=== PATIENT | female | born 1955 | race Caucasian/White ===

== ENCOUNTER 2019-10-04 10:00 | Outpatient (CLI) | payer OTHER, SELFPAY ==
--- NOTE | 2019-10-04 10:06 | MM_ITS ---
WS: [id number] SCREENING DIGITAL MAMMOGRAM WITH CAD HISTORY: SCREENING COMPARISON: 09/12/2018 and 08/04/2017 Bilateral CC and MLO views submitted. Computer aided detection analyzed. Breast composition: There are scattered areas of fibroglandular density. No suspicious masses, microc alcifications or architectural distortion. MM/[id number] IMPRESSION: BI-RADS: 1-Negative FOLLOW UP: 1 Year Follow-up
== END 2019-10-04 10:01 | disposition home or self-care (01) ==
PROVIDERS: PCP Family Medicine; Visit Provider Family Medicine
DX: Z12.31 Encounter for screening mammogram for malignant neoplasm of breast (principal)
CPT/HCPCS: 77067

== ENCOUNTER 2019-10-10 14:55 | Outpatient (CLI) | payer OTHER, SELFPAY ==
--- NOTE | 2019-10-10 15:01 | XR_ITS ---
WS: [id number] SCREENING DEXA SCAN [employer] CLINICAL INFORMATION: ASYMPTOMATIC MENOPAUSAL STATE COMPARISON: None. FINDINGS: The L1-L4 bone mineral density measures 1.483 g/cm2. This corresponds to a T score score of 2.5 and Z score of 4.0. Left femoral neck bone mineral density measures 1.143 g/cm2. This corresponds to a T score of 1.1 and Z score of 2.3. Right femoral neck bone mineral density measures 1.113 g/cm2. This corresponds to a T score 0.8of and Z score of 2.0. Mean femoral neck bone mineral density measures 1.128 g/cm2. This corresponds to a T score of 1.0 and Z score of 2.1. XR/XR DEXA axial skeleton* [id number] IMPRESSION: Normal bone mineralization. Patient's FRAX calculated 10 year probability for major osteoporotic fracture i s 7.4 % and osteoporotic hip fracture is 0.4%.
== END 2019-10-10 14:56 | disposition home or self-care (01) ==
LOC: RADWPI 15:00
PROVIDERS: PCP Family Medicine; Visit Provider Family Medicine
DX: Z78.0 Asymptomatic menopausal state (principal)
CPT/HCPCS: 77080

== ENCOUNTER → 2020-03-14 11:05 | Outpatient (BNVA) | payer MEDICARE, SELFPAY | PROVIDERS: PCP Family Medicine; Visit Provider Obstetrics & Gynecology | DX: R33.9 Retention of urine, unspecified (principal); N99.3 Prolapse of vaginal vault after hysterectomy | CPT/HCPCS: 87086 ==

== ENCOUNTER → 2020-03-27 17:26 | Outpatient (BNVA) | payer MEDICARE, SELFPAY | PROVIDERS: PCP Family Medicine; Visit Provider Obstetrics & Gynecology | DX: Z01.812 Encounter for preprocedural laboratory examination (principal); N81.11 Cystocele, midline; N99.3 Prolapse of vaginal vault after hysterectomy; R33.9 Retention of urine, unspecified | CPT/HCPCS: 87635 ==

== ENCOUNTER 2020-04-02 08:17 | Day surgery (SDC) | payer MEDICARE, SELFPAY ==
[2020-03-29 10:31] VITALS: BMI 27.9
--- NOTE | 2020-03-29 11:04 | P.ANESASSM_ITS ---
Pre-Anesthetic Assessment Pre-Anesthetic Assessment: Height/Weight: Height 1.55 m Weight 67.132 kg Preop Diagnosis: Vaginal vault prolapse, Cystocele, Urinary retention Proposed Procedure: Operation Date: 04/02/20 10:55 Proposed Procedures p Laparoscopic Uterosacral Ligament Suspense 93797 [id number] 26250 57091 N99.3 N81.11 R33.9(Not Applicable) - MD john Carty Anterior Repair Anterior Colporrhaphy(Not Applicable) - MD john Carty Suprapubic Catheter Placement(Not Applicable) - MD john Carty Cystoscopy(Not Applicable) - Jim Lechuga MD Familial anesthetic complications: None Social: Social History: No alcohol and No tobacco Exam: Pre-Anes Outpt Exam: alert, oriented x 3, clear to auscultation bilaterally and regular rate & rhythm Airway: MP: 1 Dentition: Full GI: GI: GERD Musc/skel: Musc/skel: Lower Back Pain Anesthetic Plan: ASA status: 1 Anesthesia: General Risk of > 500 ml blood loss (7ml/kg in children): No PFSH Anesthesia PFSH: Medical History (Updated 03/18/20 @ 17:26 by Jim Lechuga MD) GERD (gastroesophageal reflux disease) Osteoarthritis Postmenopausal Surgical History (Updated 03/18/20 @ 17:22 by Jim Lechuga MD) S/P colonoscopy (09/16/17) S/P laparoscopic assisted vaginal hysterectomy (LAVH) (~2006) LAVH BSO with bladder tuck. Performed by Dr. De La Garza at [facility] in [place], [place]. Family History (Updated 03/14/20 @ 15:12 by Nguyễn Lechuga) Father Diabetes Grandfather Diabetes Paternal Stroke Maternal Mother Hypertension Social History (Updated 03/14/20 @ 15:12 by Nguyễn Lechuga) Smoking and tobacco status: never smoked Alcohol intake: never Data Anesthesia Cardiac Studies: No Data to Display
[2020-03-29 11:21] LABS: Basophils % 0.2 %; Eosinophils # 0.1 10^3/uL (0.0-0.8); Eosinophils % 1.8 %; Hematocrit 46.8 % (37.0-47.0); Hemoglobin 15.3 g/dL (11.5-15.3); Lymphocytes # 1.5 10^3/uL (0.8-4.8); Lymphocytes % 30.5 %; Mean Corpuscular HGB Conc 32.7 g/dL (30.0-36.0); Mean Corpuscular Hemoglobin 30.4 pg (28.0-34.0); Mean Corpuscular Volume 92.9 fL (81-99); Mean Platelet Volume 9.8 fL (7.4-10.4); Monocytes # 0.4 10^3/uL (0.2-0.9); Monocytes % 7.6 %; Neutrophils # 2.91 10^3/uL (1.8-7.7); Neutrophils % 59.7 %; Nucleated Red Blood Cells % 0 %; Platelet Count 180 10^3/cmm (130-400); Red Blood Count 5.04 10^6/uL (4.1-5.3); White Blood Count 4.9 10^3/uL (4.0-10.0)
[2020-04-02] VITALS (14 sets, daily range): BP systolic 122–183; BP diastolic 69–92; PULSE 59–80; RESP 15–20; TEMP 36.4–36.8; O2SAT 96–100
--- NOTE | 2020-04-02 08:33 | P.HPUD_ITS ---
Surgery/Procedure H&P Update DATE OF PROCEDURE: April 02, 2020 DATE H&P PERFORMED: 03/27/20 H&P UPDATE INFORMATION: I have reviewed H&P completed within last 30 days, I have examined patient prior to procedure, No changes to prior documentation and H&P is in [facility] EMR on date indicated PREOP DIAGNOSIS: Vaginal vault prolapse, Cystocele, Urinary retention PLANNED PROCEDURE: Operation Date: 04/02/20 09:30 Proposed Procedures p Laparoscopic Uterosacral Ligament Suspense 52122 70034 54574 66293 N99.3 N81.11 R33.9(Not Applicable) - Jim Lechuga MD s Anterior Repair Anterior Colporrhaphy(Not Applicable) - Jim Lechuga MD s Suprapubic Catheter Placement(Not Applicable) - Jim Lechuga MD s Cystoscopy(Not Applicable) - Jim Lechuga MD
[2020-04-02] MEDS: phenazopyridine 100 mg Tablet 200 MG PO ×2 (08:40→21:03)
[2020-04-02] MEDS: gabapentin 300 mg Capsule PO (08:40)
[2020-04-02] MEDS: sodium chloride 0.9% 1,000 ML 30 ML IV (08:41)
[2020-04-02] MEDS: ketorolac 30 mg/mL INJ IVP ×2 (08:41→14:32)
--- NOTE | 2020-04-02 08:52 | ANES.PREANE2 ---
Pre-Anesthetic Assessment Pre-Anesthetic Assessment: Height/Weight: Height 1.55 m Weight 67.132 kg Temp Pulse Resp BP Pulse Ox 97.6 F 80 18 183/92 99 04/02/20 08:25 04/02/20 08:25 04/02/20 08:25 04/02/20 08:25 04/02/20 08:25 Preop Diagnosis: Vaginal vault prolapse, Cystocele, Urinary retention Proposed Procedure: Operation Date: 04/02/20 09:30 Proposed Procedures p Laparoscopic Uterosacral Ligament Suspense 88922 [id number] 03245 92740 N99.3 N81.11 R33.9(Not Applicable) - Jim Lechuga MD s Anterior Repair Anterior Colporrhaphy(Not Applicable) - MD john Carty Suprapubic Catheter Placement(Not Applicable) - MD john Carty Cystoscopy(Not Applicable) - Jim Lechuga MD Was Beta Michelle taken within 24 hours: N/A Last intake: Intake Last Liquid Date 04/01/20 Last Liquid Time 19:00 Last Solid Date 04/01/20 Last Solid Time 19:00 Social: Social History: No alcohol and No tobacco Exam: Pre-Anes Outpt Exam: alert, oriented x 3, clear to auscultation bilaterally and regular rate & rhythm Airway: Submandibular: WNL Cervical ROM: WNL MP: 2 Dentition: Full GI: GI: GERD Musc/skel: Musc/skel: OA/DJD Anesthetic Plan: ASA status: 2 Anesthesia: General Risk of > 500 ml blood loss (7ml/kg in children): No Meds/Allergies Current Medications: Current Medications Generic Name Dose Route Start Last Admin Trade Name Freq PRN Reason Stop Dose Admin Sodium Chloride 1,000 mls @ 30 ml s/hr 04/02/20 07:45 04/02/20 08:41 Sodium Chloride 0.9% IV 04/03/20 07:44 30 mls/hr .Q24H MICHELE Administration PFSH Anesthesia PFSH: Medical History GERD (gastroesophageal reflux disease) Osteoarthritis Postmenopausal Surgical History S/P colonoscopy (09/16/17) S/P laparoscopic assisted vaginal hysterectomy (LAVH) (~2006) LAVH BSO with bladder tuck. Performed by Dr. De La Garza at [facility] in [place], [place]. Family History Father Diabetes Grandfather Diabetes Paternal Stroke Maternal Mother Hypertension Social History (Updated 03/30/20 @ 16:49 by Jim Lechuga MD) Smoking and tobacco status: never smoked Alcohol intake: never Data Anesthesia CBC & Chem 7: 03/29/20 10:49 Cardiac Studies: No Data to Display
--- NOTE | 2020-04-02 09:49 | SUR.OPER ---
Family Notified Of Patient's Status Via Phone.
--- NOTE | 2020-04-02 11:04 | PM.OP ---
Operative Report Date of procedure: April 02, 2020 Pre-op Diagnosis: Vaginal vault prolapse, Cystocele, Urinary retention Post-op Diagnosis: Vaginal vault prolapse, Cystocele, Urinary retention Procedure Done: Laparoscopic uterosacral ligament suspension with Moschcowitz culdoplasty, Cystoscopy, Placement of suprapubic catheter Specimens removed/disposition: None Surgeon: Jim Lechuga Special Education Coordinator: Ernestina Tran Anesthesia: General Estimated blood loss (mL): 5 IV fluids (mL): 1,000 Urine output (mL): 500 Complications: None Findings: Third degree vaginal vault prolapse with cystocele. Uterus, tubes, and ovaries were surgically absent. Brief History: Patient is a 64-year-old female 2, para 2 who is status post LAVH, BSO, and bladder tuck in 2006. She presented to the office on 03/14/2020 as a referral from Dr. Sophie Vogel due to worsening prolapse. She stated that she had been noticing a bulge for approximately 3 years but that it had worsened over the last year. It typically protrudes further with standing and straining and will protrude down to the vaginal opening at those times. She denied vaginal bleeding. She does report urgency and stress incontinence symptoms at times. She reports feeling like she does not always completely empty her bladder. On examination, she was found to have a second-degree vault prolapse with 3rd-4th degree cystocele noted. Post void residual at time of her evaluation showed a 180 mL residual after 50 mL voided volume. Treatment options were discussed with her and she was presenting for surgical treatment. Procedure: Patient was taken to the operating room where general anesthesia was obtained. She was prepped and draped in usual sterile fashion in dorsal supine position with legs in Júnior style stirrups. Sequential compression boots were placed prior to starting the case. Pena catheter was inserted. Exam under anesthesia was performed and she was found to have a third degree vaginal vault prolapse with third-degree cystocele. The infraumbilical region was injected with 2% lidocaine with epinephrine. Skin incision was made with a knife in the lower edge of the navel and a size 10 trocar and sheath were inserted under direct visualization using an Optiview type technique. Trocar was removed and replaced with just the laparoscope confirming intra-abdominal placement. The anterior abdominal wall was inspected and noted be free of adhesions. In the right and left lower quadrants lateral to the inferior epigastric vessels, the skin was injected with 2% lidocaine with epinephrine. Skin incision was made with the knife and a 5 mm trocar and sheath were inserted under direct visualization at each site. Approximately 2 fingerbreadths above the umbilicus in the midline, the skin was injected with 2% lidocaine with epinephrine. Incision was made with a knife and a 5 mm trocar and sheath were inserted under direct visualization. The pelvis was thoroughly inspected. Both tubes and ovaries and uterus were noted to be surgically absent. Patient was noted to have a large enterocele. A modified Moschcowitz culdoplasty was performed. Using 2-0 silk suture, the peritoneum was picked up in a pursestring fashion starting at the posterior vaginal cuff and extending around the posterior cul-de-sac. Care was taken not to incorporate the ureters or bowel into the stitch. When tied, this closed the enterocele pouch. The vaginal vault was deflected in a cephalad direction using an EEA sizer vaginally for manipulation of the vagina. The cephalad most displacement of the vagina was noted. Starting on the right side, a stitch of 0 Ethibond suture was passed through the uterosacral ligament at the level of the displacement of the vagina. Care was taken not to kink the ureters or incorporate the bowel into the stitch. The stitch was then secured into the vaginal vault on the right lateral side. This was then tied and supported the right side of the vaginal vault well. Starting on the left side, a stitch of 0 Ethibond suture was passed through the uterosacral ligament at the level of the displacement of the vagina. Care was taken not to kink the ureters or incorporate the bowel into the stitch. The stitch was then secured into the vaginal vault on the left lateral side of the vault. This was then tied and provided further support to the vaginal vault. The abdomen was then deflated. Cystoscopy was performed. Both ureters were noted to be effluxing urine well. The bladder was inspected and no suture material was identified within the bladder. No bladder masses were noted. The vagina was then inspected and the vault suspension essentially eliminated the cystocele. It was felt that an anterior colporrhaphy was no longer needed at this time. The 5 mm sites were closed with single stitches of 4-0 Vicryl suture. The umbilical site was closed with a deep stitch of 4-0 Vicryl suture followed by subcuticular closure of the skin. Skin glue was applied to the incision sites. Using the cystoscope as a guide, the bladder was filled with approximately 500 mL of fluid. Approximately 1 fingerbreadth above the pubic symphysis in the midline, skin incision was made with the knife. Using a suprapubic catheter kit, trocar was passed through the skin incision into the dome of the bladder. The catheter was passed through the trocar using a stylette and the catheter. The trocar was then removed leaving the catheter in the bladder. The balloon was filled with 10 mL of fluid and then the stylette was removed. The catheter was secured to the skin using 3-0 nylon suture. Patient tolerated the procedures well. Sponge and needle counts were correct. DRAINS: Suprapubic catheter POSTOPERATIVE STATUS: The patient was transferred to the recovery room in satisfactory condition.
[2020-04-02] MEDS: dextrose 5%-lactated ringers 1,000 ML 125 ML IV ×2 (12:18→22:58)
[2020-04-02] MEDS: HYDROcodone-acetaminophen 5-325 mg Tablet PO (13:16)
--- NOTE | 2020-04-02 13:33 | ANE.PACU2 ---
Inpatient post-anesthesia follow up: Airway intact: Yes Vital signs: Temperature 97.8 F Pulse Rate 67 Respiratory Rate 16 Blood Pressure 157/79 Pulse Oximetry 100 Oxygen Delivery Me thod Room Air Oxygen Flow Rate 6 Fraction of Inspir ed Oxygen Hydration adequate: Yes Nausea and vomiting: No Pain level: 2 Mental status: Baseline
--- NOTE | 2020-04-02 16:15 | PC.NURSE ---
Pt up to chair at this time, tolerated well. Had a complaint of slight lightheadedness initially when sitting up on side of bed but resolved quickly after a minute or two with no other complaints. Pt then transferred well to sitting up in the chair with pillow behind lower back.
--- NOTE | 2020-04-02 16:30 | PC.NURSE ---
Suprapubic cath clamped at this time. Instructed pt to increase fluid intake and our goal was to get up and void within and hour to hour and a half if she did not feel the urge to before then. We would then measure how much she was able to void and then unclasp her cath and measure that within about 10min and update Dr Lechuga with results to determine if she would need to go home with the cath or not.
--- NOTE | 2020-04-02 18:00 | PC.NURSE ---
Pt up ambulating in hallway x2 laps. Pt tolerated well and had no complaints.
[2020-04-02] MEDS: docusate sodium 100 mg Capsule PO (21:03)
[2020-04-02] MEDS: ibuprofen 800 mg tablet PO (21:03)
[2020-04-03 05:04] VITALS: BP 122/69; PULSE 62; RESP 16; O2SAT 97
[2020-04-03 05:10] LABS: Hematocrit 38.3 % (37.0-47.0); Hemoglobin 12.8 g/dL (11.5-15.3); Mean Corpuscular HGB Conc 33.4 g/dL (30.0-36.0); Mean Corpuscular Hemoglobin 30.7 pg (28.0-34.0); Mean Corpuscular Volume 91.8 fL (81-99); Platelet Count 149 10^3/cmm (130-400); Red Blood Count 4.17 10^6/uL (4.1-5.3); White Blood Count 9.5 10^3/uL (4.0-10.0)
--- NOTE | 2020-04-03 09:18 | PM.DCS ---
Discharge Providers Date of Admission: April 02, 2020 Date of Discharge: April 03, 2020 Attending Provider at Discharge: Jim Lechuga MD Primary Care Provider: Sophie Vogel MD Diagnoses at Discharge Discharge Diagnosis (1) Vaginal vault prolapse after hysterectomy: Status: Acute (2) Cystocele: Status: Acute Qualifiers: Cystocele location: midline Qualified Code(s): N81.11 - Cystocele, midline (3) Urinary retention with incomplete bladder emptying: Status: Acute Reason for Visit Reason for Visit: uterosacral ligament suspension with anterior colp Hospital Course Hospital Course Patient is a 64-year-old female 2, para 2 who is status post LAVH, BSO, and bladder tuck in 2006. She had presented to the office on 03/14/2020 as a referral from Dr. Sophie Vogel due to worsening prolapse symptoms. She has been noticing a bulge vaginally that have been present for approximately 3 years but have worsened over the last year. She notices a bulge at the vaginal opening that will sometimes protrude further with standing and straining. She denied any bleeding with this. She had been having problems with a mixture of urgency and stress incontinence and was on Ditropan for treatment of the urgency component. In the office she had been found to have a second-degree vault prolapse with a 3rd-4th degree cystocele. She had a post void residual of 180 mL following a voided volume of 50 mL. Treatment options were discussed with her and she wished to proceed to surgical treatment. She presented to the hospital on 04/02/2020 for surgery. She had a laparoscopic uterosacral ligament suspension with a modified Moschcowitz-type culdoplasty, cystoscopy, and suprapubic catheter insertion. She was originally also scheduled for anterior colporrhaphy. However, this was not performed due to the cystocele being almost completely resolved following the vault suspension surgery. Suprapubic catheter had been placed due to the incomplete bladder emptying that she had before surgery and the increased likelihood of not being able to adequately empty the bladder following surgery. Later that day, she was initially doing very well. Her pain was controlled on oral medications. She was able to ambulate that evening without lightheadedness or dizziness. She had initially been tolerating liquids, but when she tried to advance to a regular diet she had vomiting followed by nausea. As a result, she was kept through the night. Postoperative Day 1 This morning, patient states she feels much better. She denies any nausea or vomiting this morning. She reports tolerating a regular diet. She denied any shortness of breath or chest pains. She denied any lightheadedness or dizziness with ambulation. She reports passing flatus. She states that her pain has been well controlled. Physical exam: See below Plan Post void residual was performed at this morning. After having catheter clamped for approximately an hour and a half, patient voided approximately 750 mL with approximately 400 mL residual. On further questioning of the patient, patient stated that she was feeling just a little bit of an urge to urinate at that time. I discussed with her that this shows that she has a very stretched bladder as most people would not be able to hold that much without being extremely uncomfortable let alone not having an urge to urinate until then. I discussed with them that she will need to go home with a catheter in. I recommend initially leaving it open to allow the bladder to remain collapsed in the hopes that it will work better over time with this. By this weekend, she is to start voiding trials during the day and call with results on Wednesday. I discussed with them that this may take time for the bladder to start functioning appropriately if it well. I also recommended that she stop the oxybutynin as this could contribute to the poor emptying. Questions were answered. Discharge to home. Patient being discharged with suprapubic catheter. She is to follow-up in the office in 2 and 6 weeks for routine postoperative care. She plans to use Tylenol and ibuprofen at home for pain management. Physical Exam Const: COMMON NORMALS: no acute distress, average body habitus, alert and well nourished GENERAL APPEARANCE: well developed ORIENTATION/CONSCIOUSNESS: Yes oriented to person, Yes oriented to place and Yes oriented to time Resp: COMMON NORMALS: normal respiratory effort and clear to auscultation bilaterally AUSCULTATION: clear to auscultation bilaterally Cardio: COMMON NORMALS: regular rate, regular rhythm, No gallops present (Cardio), No murmurs present (Cardio) and No rub (Cardio) RATE: regular rate RHYTHM: regular rhythm Neuro: SENSORIUM/ORIENTATION: Yes alert, Yes oriented to person, Yes oriented to place and Yes oriented to time Psych: COMMON NORMALS: normal affect MOOD & AFFECT: Yes euthymic mood Urinary Catheter Management^: Suprapubic: Cath Placed During This Visit: no F: Cath Placed During This Visit: yes, but has since been removed by the nurse Urinary Catheter Date of Insertion: 04/02/20 Urinary Catheter Time of Insertion: 09:20 Date Urinary Catheter Removed: 04/02/20 Time Urinary Catheter Discontinued: 10:50 Discharge Data Data Completed and Pending: Pending at discharge Category Date Time Status ES surgery / GI i mages Routine Exams 04/02/20 08:30 Taken Labs from last 24 hours 04/03/20 04/02/20 05:00 08:35 WBC 9.5 RBC 4.17 Hgb 12.8 Hct 38.3 MCV 91.8 MCH 30.7 MCHC 33.4 RDW 13.0 Plt Count 149 MPV 10.0 Blood Type O Positive Rho(D) Type Positive Antibody Screen Negative Vitals: Last Vital Signs Temp 98.3 F 04/02/20 21:03 Pulse 62 04/03/20 05:04 Resp 16 04/03/20 05:04 BP 122/69 04/03/20 05:04 Pulse Ox 97 04/03/20 05:04 Discharge Plan Discharge Patient Disposition: Home Condition: Stable Prescriptions: Continued doxycycline hyclate 100 mg capsule 100 mg PO DAILY RF: 0 celecoxib 200 mg capsule 200 mg PO DAILY RF: 0 estradiol 0.5 mg tablet 0.5 mg PO DAILY RF: 0 omeprazole magnesium [Prilosec OTC] 20 mg tablet,delayed release (DR/EC) 20 mg PO DAILY RF: 0 Caltrate 600-D Plus Minerals 600 mg calcium- 800 unit-40 mg tablet,chewable 1 tab PO BID RF: 0 multivitamin Tablet 1 tab PO DAILY RF: 0 Discontinued oxybutynin chloride 5 mg tablet 5 mg PO BID RF: 0 Discharge Orders: Discharge Order (Routine); Ordered 04/03/20 Ordered By: Jim Lechuga Referrals: Jim Lechuga MD [Physician] - (2-week postoperative appointment on 04/11/2020, arrival time at 8:45 6-week postoperative appointment on 05/13/2020, arrival time 9:45) Discharge Diet: Regular Discharge Activity: Limit activity as instructed Patient Instructions: OB Abdominal Surgery - [facility] Activity Restrictions/Additional Instructions: 1. Leave suprapubic catheter unclamped. 2. This weekend, when you wake up in the morning, clamp the catheter. 3. In approximately 2 hours, you need to attempt to urinate whether you feel like you need to go or not and record the amount. 4. After each attempted urination, whether successful or not, unclamp the catheter for approximately 10 minutes and then reclamp the catheter and record amount. 5. Repeat steps 3 and 4 through the day. 6. If the total volume between the amount you went on your own and what came out in the catheter is greater than 400 mL, then shorten the length of time between urination. If the total is less than 200 mL, then lengthen the time between urination. 7. At bedtime, leave the catheter open through the night and then restart the next day. 8. On Wednesday, call the office with results. Discharge Attestations Time Spent in Discharge Care*: less than 30 min Quality Metrics Clinical Quality Measures During this hospital stay, did patient experience: None Coding Level of Care Code Acute Hydrogenation Operator for Chg Fwd Exam Expanded Problem Focused Diagnoses Vaginal vault prolapse after hysterectomy N99.3 Cystocele N81.11 Cystocele location: midline Urinary retention with incomplete bladder emptying R33.9
[2020-04-03 10:05] VITALS: BP 120/68; PULSE 62; RESP 16; TEMP 36.8; O2SAT 97
[2020-04-03 10:50] VITALS: BP 120/68; PULSE 62; RESP 16; TEMP 36.8; O2SAT 97
== END 2020-04-03 10:54 | disposition home or self-care (01) ==
LOC: OR 08:19 → OBGYN 04-03 09:30
PROVIDERS: PCP Family Medicine; Visit Provider Obstetrics & Gynecology
PROC: 0USG4ZZ Reposition Vagina, Percutaneous Endoscopic Approach (ICD-10-PCS; CPT 57425; principal; 2020-04-02 09:30)
PROC: (CPT 51102; 2020-04-02 09:30)
PROC: 0TJB8ZZ Inspection of Bladder, Via Natural or Artificial Opening Endoscopic (ICD-10-PCS; CPT 52000; 2020-04-02 09:30)
DX: N99.3 Prolapse of vaginal vault after hysterectomy (principal); R33.9 Retention of urine, unspecified; K21.9 Gastro-esophageal reflux disease without esophagitis; M19.90 Unspecified osteoarthritis, unspecified site
CPT/HCPCS: 57283; 12345; 36415; 85025; 85027; 86850; 86900; 87086; 96365; 96374; J0131; J0690; J1100; J1885; J1940; J2405; J2704; J2710; J3010; J3490; J7030

== ENCOUNTER 2020-11-12 15:03 | Outpatient (CLI) | payer MEDICARE, SELFPAY ==
--- NOTE | 2020-11-12 15:10 | MM_ITS ---
WS: [id number] BILATERAL DIGITAL SCREENING MAMMOGRAPHY WITH CAD CLINICAL INFORMATION: SCREENING HISTORY: Screening mammogram. No current complaints. COMPARISON: October 04, 2019 TECHNIQUE: Bilateral CC and MLO views. FINDINGS: Scattered fibroglandular densities bilaterally. No suspicious focal mass, asymmetry, calcifications, or architectural distortion. No evidence of malignancy. MM/[id number] IMPRESSION: BI-RADS: 1-Negative FOLLOW UP: 1 Year Follow-up Recommend return to annual screening mammography.
== END 2020-11-12 15:04 | disposition home or self-care (01) ==
LOC: RADSHAW 15:08
PROVIDERS: PCP Family Medicine; Visit Provider Family Medicine
DX: Z12.31 Encounter for screening mammogram for malignant neoplasm of breast (principal)
CPT/HCPCS: 77067

== ENCOUNTER 2021-11-26 09:46 | Outpatient (CLI) | payer MEDICARE, SELFPAY ==
--- NOTE | 2021-11-26 09:51 | MM_ITS ---
WS: [id number] BILATERAL SCREENING DIGITAL TOMOSYNTHESIS MAMMOGRAM WITH CAD HISTORY: SCREENING COMPARISON: 11/12/2020, 10/04/2019 Bilateral CC and MLO views with tomosynthesis and synthetic mammography submitted. Computer aided det ection analyzed. Breast composition: There are scattered areas of fibroglandular density. No suspicious masses, microc alcifications or architectural distortion. Asymmetry posterior to the nipples is stable. MM/[id number] IMPRESSION: BI-RADS: 2-Benign FOLLOW UP: 1 Year Follow-up
== END 2021-11-26 09:47 | disposition home or self-care (01) ==
LOC: RAD 09:49
PROVIDERS: PCP Family Medicine; Visit Provider Family Medicine
DX: Z12.31 Encounter for screening mammogram for malignant neoplasm of breast (principal)
CPT/HCPCS: 77063; 77067

== ENCOUNTER 2022-06-15 13:51 | Outpatient (CLI) | payer MEDICARE, SELFPAY ==
--- NOTE | 2022-06-15 14:26 | XR_ITS ---
WS: [id number] DEXA (DUAL ENERGY X-RAY ABSORPTIOMETRY) Bone mineral density was performed using a Lengow machine. HISTORY: ASYMPTOMATIC MENOPAUSAL STATE COMPARISON: 10/10/2019 Lumbar spine BMD (L1-L4): 1.517 g/cm2 T score: 2.8 Z score: 4.2 Total hip BMD: Left: 1.121 g/cm2. T score: 0.9 Z score: 2.1 Right: 1.091 g/cm2. T score: 0.7 Z score: 1.9 10 year probability of a major osteoporotic fracture is 8%. Compared to the prior study from 10/10/2019. Lumbar spine bone mineral density has increased by 2.3%. Bilateral hips bone mineral density has decreased by 2.0%. XR/XR DEXA axial skeleton* [id number] IMPRESSION: Normal bone mineral density based upon the WHO classification for females. Significant increase in bone mineral density within the lumbar spine with a min imal decrease in the hips.
== END 2022-06-15 13:52 | disposition home or self-care (01) ==
LOC: RAD 13:54
PROVIDERS: PCP Family Medicine; Visit Provider Family Medicine
DX: Z78.0 Asymptomatic menopausal state (principal)
CPT/HCPCS: 77080

== ENCOUNTER 2023-01-27 09:30 | Outpatient (CLI) | payer MEDICARE, SELFPAY ==
--- NOTE | 2023-01-27 09:30 | MM_ITS ---
WS: [id number] BILATERAL SCREENING DIGITAL TOMOSYNTHESIS MAMMOGRAM WITH CAD HISTORY: SCREENING COMPARISON: 10/26/2021, 08/04/2017 Bilateral CC and MLO views with tomosynthesis and synthetic mammography submitted. Computer aided det ection analyzed. Breast composition: There are scattered areas of fibroglandular density. No suspicious masses, microc alcifications or architectural distortion. Stable asymmetry in the anterior LEFT breast. IMPRESSION: MM/[place] [id number] BI-RADS: 2-Benign FOLLOW UP: 1 Year Follow-up
== END 2023-01-27 09:31 | disposition home or self-care (01) ==
LOC: MOBLMAM 09:38
PROVIDERS: PCP Family Medicine; Visit Provider Family Medicine
DX: Z12.31 Encounter for screening mammogram for malignant neoplasm of breast (principal)
CPT/HCPCS: 77063; 77067

== ENCOUNTER → 2023-11-29 14:31 | Outpatient (BNVA) | payer MEDICARE, SELFPAY | PROVIDERS: PCP Family Medicine; Visit Provider Internal Medicine Cardiovascular Disease | DX: R07.9 Chest pain, unspecified (principal); R94.31 Abnormal electrocardiogram [ECG] [EKG]; I10 Essential (primary) hypertension; K21.00 Gastro-esophageal reflux disease with esophagitis, without bleeding; N39.46 Mixed incontinence | CPT/HCPCS: 93005; 99203 ==

== ENCOUNTER 2023-12-06 15:30 | Outpatient (CLI) | payer MEDICARE, SELFPAY ==
--- NOTE | 2023-12-06 15:45 | USCV_ITS ---
Jhoana Martin Age: 68 Gender: F : 1955 Exam Date: 12/06/2023 15:53 Ordering Phys: Francisca Bryson MD ([email or web address]) Technologist: [place] [facility] [place]: BP: 142 / 82 HR: 62 Rhythm: Sinus Technical Quality: Adequate MEASUREMENTS (Male / Female) Normal Values 2D ECHO LVOT Diameter 2.0 cm LV Ejection Fraction MOD 4C 56.3 % LV Ejection Fraction MOD 2C 64.9 % LV Ejection Fraction 2C AL 65.4 % LA Diameter 2.9 cm RA Systolic Volume 4C AL 39.7 ml RA Systolic Volume 4C MOD 35.6 ml LA Sys Volume AL 35.3 cm cubed LA Sys Volume Index AL 19.8 cm cubed/m squared Aorta at Sinotubular Diameter 2.2 cm M-MODE LA Ao Ratio MM 1.4 AV Cusp Separation MM 2.1 cm DOPPLER AV Peak Velocity 107.0 cm/s LVOT Peak Velocity 90.0 cm/s AV Area Cont Eq vti 3.0 cm squared AV Area Cont Eq pk 2.7 cm squared MV Peak Velocity 84.0 cm/s MV Area PHT 4.2 cm squared Mitral E to A Ratio 0.8 TR Peak Velocity 264.0 cm/s TR Peak Gradient 27.9 mmHg TV Peak E Velocity 63.0 cm/s Right Atrial Pressure 3.0 mmHg Pulmonary Artery Systolic Pressu 30.9 mmHg PV Peak Velocity 103.0 cm/s FINDINGS Left Ventricle Normal left ventricular size and systolic function, EF 65%.mild left ventricular hypertrophy. No regional wall motion abnormalities. Right Ventricle The right ventricle is normal in size and function. Right Atrium Echodensity in the right atrium, suggestive of prominent eustachian valve rudiment. Left Atrium The left atrium is normal in size. Mitral Valve No gross abnormalities noted Aortic Valve Mild aortic valve regurgitation. Tricuspid Valve Mild tricuspid valve regurgitation. Pulmonic Valve Pulmonic valve not well visualized. Pericardium Normal pericardium without effusion. Aorta Normal ascending aorta dimension. IVC Inferior vena cava not visualized. CONCLUSIONS Normal left ventricular size and systolic function, EF 65%.mild left ventricular hypertrophy. No regional wall motion abnormalities. Echodensity in the right atrium, suggestive of prominent eustachian valve rudiment. Mild aortic valve regurgitation. Mild tricuspid valve regurgitation. Estimated pulmonary artery peak systolic pressure 31 mmHg There are no intracardiac masses. There is no pericardial effusion. No similar previous studies are available for comparison Dr Francisca Bryson MD FAC (Electronically Signed) Final Date: 12 December 2023 20:58 S
== END 2023-12-06 15:31 | disposition home or self-care (01) ==
LOC: RAD 15:31
PROVIDERS: PCP Family Medicine; Visit Provider Internal Medicine Cardiovascular Disease
DX: R94.31 Abnormal electrocardiogram [ECG] [EKG] (principal); R93.1 Abnormal findings on diagnostic imaging of heart and coronary circulation
CPT/HCPCS: 93306

== ENCOUNTER → 2024-02-24 09:58 | Outpatient (BNVA) | payer MEDICARE, SELFPAY | PROVIDERS: PCP Family Medicine; Visit Provider Internal Medicine Cardiovascular Disease | DX: I10 Essential (primary) hypertension (principal); R94.31 Abnormal electrocardiogram [ECG] [EKG]; K21.00 Gastro-esophageal reflux disease with esophagitis, without bleeding | CPT/HCPCS: 99213 ==

== ENCOUNTER 2024-03-30 11:41 | Outpatient (CLI) | payer MEDICARE, SELFPAY ==
--- NOTE | 2024-03-30 11:40 | MM_ITS ---
WS: [id number] BILATERAL SCREENING DIGITAL TOMOSYNTHESIS MAMMOGRAM WITH CAD HISTORY: SCREENING COMPARISON: 01/25/2023, 11/26/2021 Bilateral CC and MLO views with tomosynthesis and synthetic mammography submitted. Computer aided det ection analyzed. Breast composition: There are scattered areas of fibroglandular density. No suspicious masses, microc alcifications or architectural distortion. No suspicious masses. No grouping of calcifications. The only partial inclusion of the axilla and axillary tails. MM/MM scr tomosynthesis [id number] IMPRESSION: BI-RADS: 2 - Benign. FOLLOW UP: 1 Year Follow-up
== END 2024-03-30 11:42 | disposition home or self-care (01) ==
LOC: MOBLMAM 11:44
PROVIDERS: PCP Family Medicine; Visit Provider Family Medicine
DX: Z12.31 Encounter for screening mammogram for malignant neoplasm of breast (principal); R92.323 Mammographic fibroglandular density, bilateral breasts
CPT/HCPCS: 77063; 77067